=== PATIENT | male | born 1970 | race Caucasian/White ===

== ENCOUNTER 2020-08-04 22:46 | Emergency (ER) | payer BC ==
[~2020-08-04] VITALS: Ht 182.9 cm; Wt 80.0 kg
[2020-08-04] MEDS ORDERED: SODIUM CHLORIDE 0.9% 1,000 ML IV ONE (23:30)
[2020-08-04] MEDS ORDERED: ASPIRIN 81MG TABLET PO ONE (23:30)
[2020-08-05 03:03] VITALS: BP 118/76
[2020-08-05 03:37] LABS: CHLORIDE 110 mEq/L (98-107)
[2020-08-05 03:46] LABS: BASOPHILS % 0.6 % (0.0-2.0); HEMATOCRIT. 39.2 % (42.0-52.0); HEMOGLOBIN. 13.2 g/dL (14.0-18.0); LYMPHOCYTES % 24.8 % (20.0-50.0); MEAN CORPUSCULAR HEMOGLOBIN 32.1 pg (28.0-32.0); MEAN CORPUSCULAR VOLUME 95.6 fL (80.0-94.0); MEAN PLATELET VOLUME 9.7 fl (7.4-10.4); MONOCYTES % 8.1 % (2.0-8.0); NEUTROPHILS % 64.5 % (40.0-76.0); PLATELET 185 x1000/uL (130-400); RED BLOOD CELL COUNT 4.11 mill/uL (4.7-6.1); RED CELL DISTRIBUTION WIDTH 12.7 % (11.6-14.6)
== END 2020-08-05 04:16 | disposition home or self-care (01) ==
LOC: ER 22:46
DX: R55 Syncope and collapse (principal); F43.9 Reaction to severe stress, unspecified; R06.4 Hyperventilation
CPT/HCPCS: 36415; 80053; 83880; 84484; 85025; 93005; 99284; J7030; Z7610